=== PATIENT | female | born 1980 | race Caucasian/White ===

== ENCOUNTER 2019-04-22 12:27 | Emergency (ER) | payer OTHER ==
[~2019-04-22] VITALS: Ht 162.5 cm; Wt 47.2 kg
[~2019-04-22 12:27] MED LIST: CIPROFLOXACIN500 MG PO; TRAMADOL HCL50 MG PO
== END 2019-04-22 16:04 | disposition home or self-care (01) ==
LOC: ED 12:27
DX: S90.32XA Contusion of left foot, initial encounter (principal); W22.8XXA Striking against or struck by other objects, initial encounter; Y93.89 Activity, other specified; Y92.89 Other specified places as the place of occurrence of the external cause; Y99.9 Unspecified external cause status